=== PATIENT | female | born 1990 ===

== ENCOUNTER 2023-06-17 09:42 | Emergency (ER) | payer BC | END 2023-06-17 10:26 | disposition left against medical advice (07) | LOC: MW.ED 09:42 | DX: Z53.21 Procedure and treatment not carried out due to patient leaving prior to being seen by health care provider (principal) ==

== ENCOUNTER 2023-07-14 12:43 | Emergency (ER) | payer BC, MEDICAID ==
[2023-07-14] MEDS ORDERED: Amoxicillin/Clavulanate K 875-125 MG Tab PO ONE (12:52)
[2023-07-14] MEDS ORDERED: Ketorolac 30 MG/ML SDV IM ONE (12:52)
[2023-07-14] MEDS ORDERED: Benzocaine 20% Topical Spray UD MUCMEM ONE (12:52)
[2023-07-14] MEDS ORDERED: Lidocaine 2% Viscous Solution 15 ML UD PO ONE (12:52)
[2023-07-14] MEDS ORDERED: Acetaminophen/oxyCODONE 325-5 MG Tab PO ONE (12:53)
[2023-07-14] MEDS ORDERED: HYDROmorphone 1 MG/ML Syringe IM ONE (12:53)
== END 2023-07-14 13:26 | disposition home or self-care (01) ==
LOC: MW.ED 12:43
DX: K04.7 Periapical abscess without sinus (principal)
CPT/HCPCS: 96372; 99282; A9270; J1885; 99283

== ENCOUNTER 2023-08-19 13:13 | Emergency (ER) | payer MEDICAID ==
[2023-08-19] MEDS ORDERED: Lidocaine 1% 5 ML VIAL INJECT ONE (14:01)
[2023-08-19] MEDS ORDERED: Bupivacaine 0.5% 10 ML SDV INJECT ONE (14:01)
== END 2023-08-19 14:45 | disposition home or self-care (01) ==
LOC: MW.ED 13:13
DX: K02.9 Dental caries, unspecified (principal); Z88.5 Allergy status to narcotic agent; Z72.0 Tobacco use
CPT/HCPCS: 64400; 99282; J3490; 99283

== ENCOUNTER 2023-08-25 15:05 | Emergency (ER) | payer MEDICAID ==
[2023-08-25] MEDS ORDERED: Ketorolac 30 MG/ML SDV IVPUSH ONE (15:18)
[2023-08-25] MEDS ORDERED: Sodium Chloride 0.9% 1,000 ML IV ONE (15:18)
[2023-08-25] MEDS ORDERED: Alum Hydro/Mag Hydro/Simeth XS 15 ML, Metoclopramide 5 MG, Lidocaine 2% 5 ML PO ONE ×3 (15:18)
[2023-08-25] MEDS ORDERED: Ondansetron 4 MG/2 ML SDV IVPUSH ONE (15:18)
[2023-08-25 15:44] LABS: BASOPHILS ABSOLUTE AUTO 0.02 K/uL (0.00-0.20); BASOPHILS PERCENT AUTO 0.2 % (0.0-1.0); EOSINOPHILS ABSOLUTE AUTO 0.01 K/uL (0.00-0.45); EOSINOPHILS PERCENT AUTO 0.1 % (0.0-6.0); HEMATOCRIT 37.5 % (37.0-47.0); HEMOGLOBIN 12.3 g/dL (12.0-16.0); IMMATURE GRAN ABSOLUTE AUTO 0.02 K/uL (0.00-0.05); IMMATURE GRAN PERCENT AUTO 0.2 % (0.0-0.4); LYMPHOCYTES ABSOLUTE AUTO 3.45 K/uL (1.00-4.80); LYMPHOCYTES PERCENT AUTO 32.1 % (24.0-44.0); MEAN CORPUSCULAR HEMOGLOBIN 29.6 pg (28.0-32.0); MEAN CORPUSCULAR HGB CONC 32.8 g/dL (32.0-36.0); MEAN CORPUSCULAR VOLUME 90.1 fL (83.0-99.0); MEAN PLATELET VOLUME 11.9 fL (9.4-12.3); MONOCYTES ABSOLUTE AUTO 0.56 K/uL (0.00-0.80); MONOCYTES PERCENT AUTO 5.2 % (0.0-8.0); NEUTROPHILS PERCENT AUTO 62.2 % (41.0-71.0); PLATELET COUNT,PLT 208 K/uL (150-400); RED BLOOD CELL COUNT 4.16 M/uL (4.10-5.30); WHITE BLOOD CELL COUNT,WBC 10.76 K/uL (3.9-11.3)
[2023-08-25 16:08] LABS: A/G RATIO 1.1 (0.9-1.6); ALBUMIN 3.5 g/dL (3.4-5.0); BILIRUBIN TOTAL 0.2 mg/dL (0.2-1.0); CALCIUM 8.7 mg/dL (8.5-10.1); CARBON DIOXIDE,CO2 30.4 mmol/L (21.0-32.0); CREATININE 0.9 mg/dL (0.6-1.0); EST CRCL DRUG DOSING (CG) 102.16 mL/min; POTASSIUM,K 3.6 mmol/L (3.5-5.1); PROTEIN TOTAL,TP 6.7 g/dL (6.4-8.2)
== END 2023-08-25 18:00 | disposition home or self-care (01) ==
LOC: MW.ED 15:05
DX: R10.13 Epigastric pain (principal); Z88.5 Allergy status to narcotic agent
CPT/HCPCS: 36415; 80053; 83690; 84703; 85025; 96361; 96374; 96375; 99284; A9270; J1885; J2405; J7030